=== PATIENT | male | born 2000 | race Caucasian/White ===

== ENCOUNTER 2022-05-14 17:17 | Emergency (ER) | payer OTHER, BC ==
[2022-05-14] MEDS ORDERED: Bacitracin Oint 1 GM U/D Packet TOP ONE (17:37)
[2022-05-14] MEDS: Naproxen 250 MG Tab PO ONE (18:21)
== END 2022-05-14 18:32 | disposition home or self-care (01) ==
LOC: JP.ED 17:17
DX: S00.83XA Contusion of other part of head, initial encounter (principal); S60.221A Contusion of right hand, initial encounter; S40.812A Abrasion of left upper arm, initial encounter; S30.811A Abrasion of abdominal wall, initial encounter; V94.89XA Other water transport accident, initial encounter
CPT/HCPCS: 73130-26-RT; 73130-RT; 73502-26-RT; 73502-RT; 99282; 99283; A9270-GY